=== PATIENT | female | born 1945 | race Caucasian/White ===

== ENCOUNTER → 2016-07-13 | Outpatient (CLI) | payer MEDICARE, BC ==
[~2016-07-13] MED LIST: ACTONEL 35MG TA35 MG PO; ASPIRIN 32325 MG/TAB PO; CALCIUM CARBONATE; LEVOTHYROXIN0.075 MG PO; LEVOTHYROXIN0.088 MG PO; MVI; PRILOSEC 20MG20 MG PO; PRILOSEC10 MG PO; VERAMYST
== END ==
LOC: MC.RAD 07:40
DX: Z12.31 Encounter for screening mammogram for malignant neoplasm of breast (principal)

== ENCOUNTER → 2017-08-02 | Outpatient (CLI) | payer MEDICARE, BC | LOC: MC.RAD 08:00 | DX: Z12.31 Encounter for screening mammogram for malignant neoplasm of breast (principal) ==

== ENCOUNTER → 2018-08-08 | Outpatient (CLI) | payer MEDICARE, BC | LOC: MC.RAD 07:46 | DX: Z12.31 Encounter for screening mammogram for malignant neoplasm of breast (principal) ==

== ENCOUNTER → 2019-08-10 | Outpatient (CLI) | payer MEDICARE, BC | LOC: MC.RAD 09:45 | DX: Z12.31 Encounter for screening mammogram for malignant neoplasm of breast (principal) ==

== ENCOUNTER → 2020-08-14 | Outpatient (CLI) | payer MEDICARE, BC | LOC: MC.RAD 08:41 | DX: Z12.31 Encounter for screening mammogram for malignant neoplasm of breast (principal) ==

== ENCOUNTER → 2021-03-25 | Outpatient (CLI) | payer MEDICARE, BC | LOC: COL.RAD 14:03 | DX: R31.29 Other microscopic hematuria (principal) ==

== ENCOUNTER → 2021-08-17 | Outpatient (CLI) | payer MEDICARE, BC | LOC: COL.RAD 13:50 | DX: E01.0 Iodine-deficiency related diffuse (endemic) goiter (principal) ==

== ENCOUNTER → 2021-08-25 | Outpatient (CLI) | payer MEDICARE, BC | LOC: MC.RAD 14:24 | DX: Z12.31 Encounter for screening mammogram for malignant neoplasm of breast (principal) ==

== ENCOUNTER → 2022-01-19 | Outpatient (CLI) | payer MEDICARE, BC | LOC: COL.RAD 10:48 | DX: K21.9 Gastro-esophageal reflux disease without esophagitis (principal) ==

== ENCOUNTER → 2023-11-21 | Outpatient (CLI) | payer MEDICARE, BC ==
[~2023-11-21] MED LIST changes: +BENICAR40 MG PO; +CALCIUM 600MG+D1 TAB PO; +CALCIUM-MAGNES1 EAC1 PO; +DAILY MULTIPLE1 T18 PO; +FOSAMAX 70MG TA70 MG PO; +LEXAPRO 5MG5 MG PO; +MASON NATURAL1200 MG PO; +MOBIC 7.5MG7.5 MG PO; +PRIL40 PO; +SINGULAIR 110 MG/TAB PO; +TIROSINT88 MC1 PO; +ULTRAM 50MG TAB50 MG PO; +ZOCOR 20MG20 MG PO; +ZYRTEC5 MG PO
== END ==
LOC: MC.RAD 08:10
DX: Z12.31 Encounter for screening mammogram for malignant neoplasm of breast (principal)